=== PATIENT | male | born 1995 ===

== ENCOUNTER 2023-09-11 21:39 | Emergency (ER) | payer SELFPAY ==
[~2023-09-11] VITALS: Ht 167.6 cm; Wt 81.7 kg
[2023-09-11 22:29] LABS: AMPHETAMINES, URINE POSITIVE (NEGATIVE); BARBITURATES, URINE NEGATIVE (NEGATIVE); BENZODIAZEPINE, URINE NEGATIVE (NEGATIVE); BUPRENORPHINE, URINE NEGATIVE (NEGATIVE); CANNABINOID, URINE NEGATIVE (NEGATIVE); COCAINE, URINE NEGATIVE (NEGATIVE); ECSTASY, URINE POSITIVE (NEGATIVE); FENTANYL, URINE NEGATIVE (NEGATIVE); METHADONE, URINE NEGATIVE (NEGATIVE); OPIATES, URINE NEGATIVE (NEGATIVE); OXYCODONE, URINE NEGATIVE (NEGATIVE); PHENCYCLIDINE, URINE NEGATIVE (NEGATIVE)
[2023-09-11 22:36] LABS: HEMATOCRIT 44.6 % (35.0-50.0); HEMOGLOBIN 15.3 g/dL (12.0-18.0); MCH 29.7 (27-36); MCHC 34.2 g/dl (30-36); MCV 86.6 fl (81-99); PLATELET COUNT 354 K/uL (140-440); RBC 5.15 M/ul (4.3-5.7); RDW 13.2 (10.5-15.0)
[2023-09-11 22:47] LABS: BANDS, MANUAL DIFF 7; LYMPHOCYTES, MANUAL DIFF 20; MONOCYTES, MANUAL DIFF 14; NEUTROPHILS, MANUAL DIFF 59
[2023-09-11 22:58] LABS: ACETAMINOPHEN 0 ug/mL (10-30); ALBUMIN 4.5 g/dL (3.4-5.0); ALBUMIN/GLOBULIN RATIO 1.13 (1.1-2.4); ALCOHOL, MEDICAL <3 ng/dL (<3); ALKALINE PHOSPHATASE 75 U/L (46-116); ALT (SGPT) 45 U/L (14-59); ANION GAP 18.2 (7-21); AST (SGOT) 68 U/L (15-37); BUN/CREATININE RATIO 21.15 (6.0-28.6); CALCIUM 9.8 mg/dL (8.5-10.1); CARBON DIOXIDE 26 mmol/L (21-32); CHLORIDE 101 mmol/L (98-107); CREATININE, SERUM 1.04 mg/dL (0.70-1.30); GLOMERULAR FILTRATION RATE,EST 99 mL/min (>60); POTASSIUM 3.2 mmol/L (3.5-5.1); PROTEIN, TOTAL 8.5 g/dL (6.4-8.2); SALICYLATE 0.5 mg/dL (2.8-20.0); TSH, 3RD GENERATION 1.088 uIU/mL (0.358-3.740); UREA NITROGEN 22 mg/dL (7-18)
[2023-09-11 23:02] VITALS: BP 144/101
== END 2023-09-11 23:25 | disposition home or self-care (01) ==
LOC: ED 21:39
PROVIDERS: Emergency Medicine
DX: F15.20 Other stimulant dependence, uncomplicated (principal); D72.829 Elevated white blood cell count, unspecified; F32.A Depression, unspecified; Z88.6 Allergy status to analgesic agent
CPT/HCPCS: 36415; 80053; 80307; 84443; 85025; 99284; G0480